=== PATIENT | male | born 1985 | race Hispanic/Latino ===

== ENCOUNTER 2021-07-25 16:33 | Emergency (ER) | payer SELFPAY ==
[2021-07-25 17:07] LABS: Bilirubin Negative (Negative); Blood, Urine 1+ (Negative); Clarity Clear (Clear); Glucose, Urine (Dipstick) Normal (Negative); Ketone, Urine Negative (Negative); Leukocyte Negative Leu/uL (Negative); Nitrite Negative (Negative); Protein, Urine (Dipstick) 10 mg/dL (Neg-Trace); Specific Gravity, Urine 1.026 (1.002-1.036); Urobilinogen Normal mg/dL (Less than 2); pH, Urine 5.5 (5.0-9.0)
[2021-07-25 17:08] LABS: Bacteria/HPF None Seen HPF (None Seen); RBC/HPF 0-3 HPF (0-3); Squamous Epithelial None Seen HPF (0-3); WBC/HPF 0-3 HPF (0-3)
[2021-07-25] MEDS ORDERED: Ibuprofen 200 MG TAB ONE (17:26)
== END 2021-07-25 17:38 | disposition home or self-care (01) ==
LOC: ERS 16:33
DX: R10.31 Right lower quadrant pain (principal)
CPT/HCPCS: 81003; 81015; 99284